=== PATIENT | male | born 1945 | race Caucasian/White ===

== ENCOUNTER → 2022-07-10 | Outpatient (CLI) | payer MEDICARE, BC ==
[~2022-07-10] MED LIST: CEPH500 PO; OXAP600 PO; OXYACE5T PO; PROACE100 PO; SULTRIDS PO; VALS80 PO
== END | disposition home or self-care (01) ==
LOC: LAB 07:50 → LAB SHORT 07:50
DX: L57.0 Actinic keratosis (principal)
CPT/HCPCS: 88305

== ENCOUNTER 2023-10-31 08:03 | Day surgery (SDC) | payer MEDICARE, BC ==
[~2023-10-31] VITALS: Ht 177.8 cm; Wt 99.5 kg
[~2023-10-31 08:03] MED LIST changes: +Cialis5 MG PO; +Diovan160 MG; +GABA300 PO; +HYDCHL25 PO; +INDO50 PO; +Methocarbamol500 MG PO; +TAMS.4ER PO; +Verapamil HCl180 M1 PO; +WARF5 PO
[2023-10-31] MEDS ORDERED: ACET500 PO (08:55)
--- NOTE | 2023-10-31 09:09 | NUR ---
10/31/23 0909 Katie Ramirez RIGHT EYE CONFIRMED CORRECT EYE. TETRACAINE PLACED IN RIGHT EYE AT 0850. PLEDGET PLACED IN RIGHT EYE AT 0852. PT TOLERATED WELL.
[2023-10-31 09:37] VITALS: BP 92/76
--- NOTE | 2023-10-31 10:03 | NUR ---
10/31/23 1003 Chano Garcia HEART RATE IRREGULAR. PT STATES HE HAS A-FIB. HE DENIES CARDIAC SYMPTOMS--INCLUDING CHEST PAIN, DIZZINESS, AND SOB--AND NONE WERE OBSERVED. PT APPEARED CALM, TALKATIVE, AND RELAXED UPON D/C. HE EXPRESSED EAGERNESS TO RETURN HOME.
== END 2023-10-31 09:55 | disposition home or self-care (01) ==
LOC: ORSCSDS 08:03
PROVIDERS: Ophthalmology
PROC: 08RJ3JZ Replacement of Right Lens with Synthetic Substitute, Percutaneous Approach (ICD-10-PCS; principal; 2023-10-31 09:30)
DX: H25.13 Age-related nuclear cataract, bilateral (principal); I10 Essential (primary) hypertension; G47.33 Obstructive sleep apnea (adult) (pediatric); I48.91 Unspecified atrial fibrillation; Z79.01 Long term (current) use of anticoagulants; Z79.899 Other long term (current) drug therapy
CPT/HCPCS: J2001; J2250; J3010; J3301; J7040; V2632

== ENCOUNTER 2023-11-07 08:02 | Day surgery (SDC) | payer MEDICARE, BC ==
[~2023-11-07] VITALS: Ht 177.8 cm; Wt 101.3 kg
[~2023-11-07 08:02] MED LIST changes: +ACET500 PO; +Balanced Salt Epinephrine Irrigation Solution 500 mL IR SCH; +Lactated Ringer's 0 ML IV ONE; +Lidocaine HCl/Pf 1% 5 ML VIAL XX SCH; +Moxifloxacin HCL 0.5 MG/0.1 ML 0.4MLSYR LEFTEYE SCH; +NS 500 ML IV ONE; +PHENYLEPHRINE\\TROPICAMIDE\\TETRACAINE OPHTHALMIC DILATING SOLN LEFTEYE PRN; +Phenylephrine Frt 10% Opth (ORSC) ONE; +Povidone-Iodine 450 DROP/30 ML Solution LEFTEYE SCH; +Povidone-Iodine 450 DROP/30 ML Solution ONE; +Triamcinolone Inj Susp 40 MG / ML 1ML Vial INJ SCH; +Triamcinolone Inj Susp 40 MG / ML 1ML Vial ONE
[2023-11-07] MEDS ORDERED: NS 500 ML IV ONE (08:50)
--- NOTE | 2023-11-07 08:52 | NUR ---
11/07/23 0852 Yahaira Bergeron IN AT 0839 PLESONYAETT IN AT 0840 CALL LIGHT AT BEDSIDE
[2023-11-07] MEDS ORDERED: Midazolam HCl 1MG / ML 2ML Vial ONE (09:00)
[2023-11-07] MEDS ORDERED: Tetracaine HCl 0.5% Opth Soln 15 ml LEFTEYE ONE (09:21)
[2023-11-07] MEDS ORDERED: FentaNYL Citrate 50 MCG/ML 2 ML Injection ONE (09:22)
[2023-11-07 09:40] VITALS: BP 110/73
== END 2023-11-07 09:54 | disposition home or self-care (01) ==
LOC: ORSCSDS 08:02
PROVIDERS: Ophthalmology
PROC: 08RK3JZ Replacement of Left Lens with Synthetic Substitute, Percutaneous Approach (ICD-10-PCS; principal; 2023-11-07 09:30)
DX: H25.12 Age-related nuclear cataract, left eye (principal); Z96.1 Presence of intraocular lens; G47.33 Obstructive sleep apnea (adult) (pediatric); I10 Essential (primary) hypertension; I48.91 Unspecified atrial fibrillation; Z87.891 Personal history of nicotine dependence; Z79.01 Long term (current) use of anticoagulants; Z79.899 Other long term (current) drug therapy
CPT/HCPCS: J2250; J3010; J3301; J7040; J7120; V2632

== ENCOUNTER → 2024-09-11 | Outpatient (CLI) | payer MEDICARE, BC ==
[~2024-09-11] MED LIST changes: -Balanced Salt Epinephrine Irrigation Solution 500 mL IR SCH; -Lactated Ringer's 0 ML IV ONE; -Lidocaine HCl/Pf 1% 5 ML VIAL XX SCH; -Moxifloxacin HCL 0.5 MG/0.1 ML 0.4MLSYR LEFTEYE SCH; -NS 500 ML IV ONE; -PHENYLEPHRINE\\TROPICAMIDE\\TETRACAINE OPHTHALMIC DILATING SOLN LEFTEYE PRN; -Phenylephrine Frt 10% Opth (ORSC) ONE; -Povidone-Iodine 450 DROP/30 ML Solution LEFTEYE SCH; -Povidone-Iodine 450 DROP/30 ML Solution ONE; -Triamcinolone Inj Susp 40 MG / ML 1ML Vial INJ SCH; -Triamcinolone Inj Susp 40 MG / ML 1ML Vial ONE
[2024-09-11 15:36] LABS: BASOPHILS ABSOLUTE AUTO 0.02 K/mm3 (0.00-0.23); BASOPHILS PERCENT AUTO 0 % (0-2); EOSINOPHILS ABSOLUTE AUTO 0.14 K/mm3 (0.00-0.68); EOSINOPHILS PERCENT AUTO 2 % (0-6); Hematocrit 41.6 % (37.0-53.0); Hemoglobin 14.5 g/dL (13.5-17.5); IMMATURE GRAN ABSOLUTE AUTO 0.03 K/mm3 (0.00-0.10); IMMATURE GRAN PERCENT AUTO 0 % (0-1); LYMPHOCYTES ABSOLUTE AUTO 1.05 K/mm3 (0.84-5.20); LYMPHOCYTES PERCENT AUTO 15 % (21-46); MONOCYTES ABSOLUTE AUTO 0.85 K/mm3 (0.16-1.47); MONOCYTES PERCENT AUTO 12 % (4-13); Mean Corpuscular HGB 31.5 pg (26.0-34.0); Mean Corpuscular HGB Conc 34.9 g/dL (31.5-36.5); Mean Corpuscular Volume 90 fL (80-100); Mean Platelet Volume 11.1 fL (9.1-12.4); NEUTROPHILS ABSOLUTE AUTO 5.09 K/mm3 (1.96-9.15); NEUTROPHILS PERCENT AUTO 71 % (41-73); Platelet Count 251 K/mm3 (150-400); RDW Coefficient Variation 14.6 % (11.7-14.2); RDW Standard Deviation 48.3 fL (35.1-46.3); White Blood Cell Count 7.18 K/mm3 (4.00-11.30)
[2024-09-11 16:31] LABS: Albumin, Blood 3.6 g/dL (3.4-5.0); Albumin/Globulin Ratio 1.1 (0.8-1.8); Bilirubin, Total 0.7 mg/dL (0.1-1.0); Bun/Creatinine Ratio 19.3 (12.0-20.0); Calcium, Blood 9.6 mg/dL (8.5-10.1); Creatinine, Blood 0.98 mg/dL (0.60-1.20); Globulin, Blood 3.3 g/dL (2.2-4.0); Potassium, Blood 3.5 mmol/L (3.5-5.5); Total Protein, Blood 6.9 g/dL (6.4-8.2); Uric Acid, Blood 8.2 mg/dL (3.5-7.2)
== END ==
LOC: LAB 14:40 → LAB SHORT 14:40
PROVIDERS: Nurse Practitioner Family
DX: I10 Essential (primary) hypertension (principal); M25.572 Pain in left ankle and joints of left foot
CPT/HCPCS: 80053; 84550; 85025

== ENCOUNTER → 2024-12-23 | Outpatient (CLI) | payer MEDICARE, BC | END | disposition home or self-care (01) | LOC: LAB 18:01 → LAB SHORT 18:01 | DX: R31.9 Hematuria, unspecified (principal) | CPT/HCPCS: 87077; 87086; 87186 ==

== ENCOUNTER → 2025-02-08 | Outpatient (CLI) | payer MEDICARE, BC | END | disposition home or self-care (01) | LOC: LAB 14:20 → LAB SHORT 14:20 | DX: L82.0 Inflamed seborrheic keratosis (principal); M25.462 Effusion, left knee | CPT/HCPCS: 87070; 87205; 88305 ==